=== PATIENT | female | born 1980 | race Caucasian/White ===

== ENCOUNTER 2021-03-21 17:14 | Emergency (ER) | payer BC, SELFPAY ==
[2021-03-21 17:27] VITALS: BP 153/61; PULSE 129; RESP 16; TEMP 37.9; O2SAT 100
--- NOTE | 2021-03-21 17:57 | ED.URI ---
HPI - URI/Sore Throat General Chief Complaint: Upper Respiratory Infection Stated Complaint: sore throat Time Seen by Provider: 03/21/21 17:57 Source: patient, RN notes reviewed and old records reviewed Mode of arrival: ambulatory Limitations: no limitations History of Present Illness HPI Narrative: 41 year old female who presents to [facility] care with complaints of sore throat which started today. Patient states that she has an elevated temperature, white pus pockets noted also on bilateral tonsils. Patient denies any nasal congestion or any ear pain, no cough or any nausea or vomiting. Patient reports that she has been taking Ibuprofen for her symptoms.Patient denies any shortness of breath or any wheezing. denies any muscle aches or headache pain. Patient has had COVID vaccinations. MD elicited complaint: fever and sore throat Related Data Home Medications Medication Instructions Recorded Confirmed phentermine 37.5 mg PO DAILY 03/21/21 03/21/21 Allergies Allergy/AdvReac Type Severity Reaction Status Date / Time [facility] [[facility] Allergy Mild Hives Verified 03/21/21 17:51 Review of Systems Review of Systems: CONSTITUTIONAL: Positive for fever, chills, or sweats. EYES: Denies visual changes, redness, or discharge. ENT: Denies rhinorrhea, congestion, positive for sore throat, no otalgia. CARDIOVASCULAR: Denies chest pain, palpitations, or edema. RESPIRATORY: Denies cough or dyspnea. GASTROINTESTINAL: Denies abdominal pain, nausea, vomiting, or diarrhea. GENITOURINARY: Denies dysuria or hematuria. SKIN: Denies rash or itching. MUSCULOSKELETAL: Denies back pain, joint pain, or myalgia. NEUROLOGIC: Denies headache, numbness, or weakness. PSYCHIATRIC: Denies anxiety or depression. All systems reviewed & are unremarkable except as noted in HPI and below PMFSH Past Medical History Medical History (Updated 03/23/21 @ 21:49 by Marylu Kirk NP) Fibroid, uterine Ovarian cyst Surgical History Surgical History (Updated 03/23/21 @ 21:49 by Marylu Kirk NP) History of dilation and curettage Hx of cholecystectomy Family History Family History (Updated 03/23/21 @ 21:56 by Marylu Kirk NP) Other Family history non-contributory Social History Social History (Updated 03/23/21 @ 21:50 by Marylu Kirk NP) Smoking status: Never smoker Alcohol intake: current Alcohol use details: social Substance use: never Living arrangements: with family Gender identity (if verbalized by the patient): Female Comments At time of signature, agree with nursing past medical, surgical, social and family history. There is no relevant family history pertinent to the presenting complaint Exam Narrative: GENERAL: Well-appearing, well-nourished, and in no acute distress. HEAD: Normocephalic, atraumatic. EYES: PERRLA and EOMI. ENT: Nares clear, no rhinorrhea or epistaxis. Mucous membranes moist.TM's normal with good light reflex, throat red with white pustules noted on bilateral tonsils with tonsils red and swollen, reports painful swallowing, able to control oral secretions, no trismus noted. NECK: Supple.lymphadenopathy noted bilateral neck CHEST: Clear to auscultation. No respiratory distress no cough noted, SAO2 100% on room air.. HEART: Regular rate and rhythm. No murmur heard. Normal peripheral pulses. ABDOMEN: Soft, nontender, nondistended, normal active bowel sounds. EXTREMITIES: Normal range of motion. No edema. SKIN: Warm, dry, no rash. NEURO: No focal deficits. Alert and oriented x3. Course Vital Signs Vital signs: Vital Signs Temperature 37.9 C H 03/21/21 17:27 Pulse Rate 129 H 03/21/21 17:27 Respiratory Rate 16 03/21/21 17:27 Blood Pressure 153/61 H 03/21/21 17:27 Pulse Oximetry 100 03/21/21 17:27 Temperature 37.9 C H 03/21/21 17:27 Pulse Rate 129 H 03/21/21 17:27 Respiratory Rate 16 03/21/21 17:27 Blood Pressure 153/61 H 03/21/21 17:27 Pulse Oximetry
== END 2021-03-21 18:13 | disposition home or self-care (01) ==
PROVIDERS: Emergency Provider Registered Nurse; PCP Family Medicine
DX: J03.90 Acute tonsillitis, unspecified (principal)
CPT/HCPCS: 87081; 87880; 99213; G0463

== ENCOUNTER 2023-01-17 16:36 | Emergency (ER) | payer BC, SELFPAY ==
[2023-01-17 16:43] VITALS: BP 124/79; PULSE 96; RESP 16; TEMP 36.7; O2SAT 100
[2023-01-17 16:44] VITALS: BP 124/79; PULSE 96; RESP 16; TEMP 36.7; O2SAT 100
--- NOTE | 2023-01-17 17:06 | ED.FEMALEGU ---
HPI - Female Genitourinary General Chief complaint: Urogenital-Female Stated complaint: Urinary Problem Time Seen by Provider: 01/17/23 17:06 Source: patient, RN notes reviewed and old records reviewed Mode of arrival: ambulatory Limitations: no limitations History of Present Illness HPI Narrative: 42-year-old female presents to the [facility] with urinary symptoms. Patient reports frequency, urgency and a 9 able to completely empty her bladder feeling. Reports irritation when she urinates however no significant pain. Has been increasing over the last 3 days. Related Data Home Medications Medication Instructions Recorded Confirmed phentermine 37.5 mg tablet 37.5 mg PO DAILY 03/21/21 10/22/22 Allergies Allergy/AdvReac Type Severity Reaction Status Date / Time cefaclor [From [facility]] Allergy Mild Hives Verified 12/17/22 08:45 Review of Systems Review of Systems: All systems reviewed & are unremarkable except as noted in HPI and below Constitutional: Constitutional: Reports no additional constitutional complaints Eyes: Eyes: Reports no additional eye complaints ENT: Reports system reviewed and no additional complaints, except as documented Cardiovascular: Cardiovascular: Reports no additional cardiovascular complaints, Denies chest pain and Denies dyspnea Respiratory: Respiratory: Reports no additional respiratory complaints, Denies chest congestion, Denies cough and Denies dyspnea Gastrointestinal: Gastrointestinal: Reports no additional gastrointestinal complaints, Denies abdominal pain, Denies nausea and Denies vomiting Genitourinary: Genitourinary: Reports as per HPI Musculoskeletal: Musculoskeletal: Reports no additional musculoskeletal complaints Integumentary/Breasts: Skin/Breast: Reports system reviewed and no additional complaints, except as docu Neurologic: Reports system reviewed and no additional complaints, except as documented Psychiatric: Psychiatric: Reports no additional psychiatric complaints Allergic/Immunologic: Allergic/Immunologic: Reports no additional allergic/immunologic complaints [facility] Past Medical History Medical History Endometriosis Fibroid, uterine Ovarian cyst Unspecified lump in the left breast, lower outer quadrant Surgical History Surgical History H/O cervical polypectomy 2011 History of cholecystectomy History of dilation and curettage HSCOPE D&C/POLYP/LSCOPE LT OVARIAN CYST 11/07/2020 hysteroscopy/D&C - endocervical polyp-benign- 2010 laparoscopy/D&C/hysteroscopy - pelvic endometriosis/adhesion descending colon,sigmoid colon,left pelvic sidewall/uterine septum- 2007 Hx of cholecystectomy Family History Family History Mother Hypothyroidism Other Family history non-contributory Social History Social History Smoking status: Never smoker Alcohol intake: current Alcohol use details: social Substance use: never Substance use type: does not use Lack of Transportation: No Lack of Food: Never True Current Housing: I Have Housing Concerned About Future Housing: No Difficulty Paying Gas/Electric Bills: No Difficulty Paying for Meds: No Currently Unemployed: No Education: Bachelor's Degree Difficulty w/ Childcare or Family Care: No Living arrangements: with family Gender identity (if verbalized by the patient): Female Sexual Orientation (if Verbalized by the Patient): Straight or Heterosexual Comments At the time of my signature, I reviewed and agree with the nursing past medical, surgical, social, and family history. There is no relevant family history pertinent to the patient complaint. Exam Const: General: cooperative, healthy appearing, comfortable, no acute distress, well developed, alert and well
== END 2023-01-17 17:16 | disposition home or self-care (01) ==
PROVIDERS: Emergency Provider Nurse Practitioner; PCP Family Medicine
DX: N39.0 Urinary tract infection, site not specified (principal); B96.20 Unspecified Escherichia coli [E. coli] as the cause of diseases classified elsewhere; N80.9 Endometriosis, unspecified
CPT/HCPCS: 81003; 87077; 87086; 87186; 99213; G0463

== ENCOUNTER 2023-10-16 14:57 | Emergency (ER) | payer BC, SELFPAY ==
[2023-10-16 15:01] VITALS: BP 140/71; PULSE 103; RESP 18; TEMP 37.3; O2SAT 100
--- NOTE | 2023-10-16 15:27 | ED.FEMALEGU ---
HPI - Female Genitourinary General Chief complaint: Urogenital-Female Stated complaint: poss UTI Source: patient and RN notes reviewed Mode of arrival: ambulatory Limitations: no limitations History of Present Illness HPI Narrative: 43-year-old female presented for complaint of burning at the end of urination, frequency, urgency. Onset over one week, worsening since yesterday. Reports pressure when sitting. denies hematuria, nausea, vomiting, abdominal pain, flank pain, constipation, diarrhea, fevers or chills. LMP 2 weeks ago, denies concern for std or . Related Data Home Medications Medication Instructions Recorded Confirmed phentermine 37.5 mg tablet 37.5 mg PO DAILY 03/21/21 10/16/23 losartan 25 mg tablet 25 mg PO DAILY 10/16/23 10/16/23 Allergies Allergy/AdvReac Type Severity Reaction Status Date / Time cefaclor [From [facility]] Allergy Mild Hives Verified 10/16/23 15:15 Review of Systems Review of Systems: CONSTITUTIONAL: Denies body aches, fever, chills, or sweats. CARDIOVASCULAR: Denies chest pain, palpitations, or edema. RESPIRATORY: Denies cough or dyspnea. GASTROINTESTINAL: Denies abdominal pain, nausea, vomiting, or diarrhea. GENITOURINARY: Reports dysuria, frequency, urgency, denies hematuria, flank pain SKIN: Denies rash, itching, or wounds. MUSCULOSKELETAL: Denies back pain or myalgia. [facility] Past Medical History Medical History Endometriosis Fibroid, uterine Ovarian cyst Unspecified lump in the left breast, lower outer quadrant Surgical History Surgical History H/O cervical polypectomy 2011 History of cholecystectomy History of dilation and curettage HSCOPE D&C/POLYP/LSCOPE LT OVARIAN CYST 11/07/2020 hysteroscopy/D&C - endocervical polyp-benign- 2009 laparoscopy/D&C/hysteroscopy - pelvic endometriosis/adhesion descending colon,sigmoid colon,left pelvic sidewall/uterine septum- 2007 Hx of cholecystectomy Family History Family History Mother Hypothyroidism Other Family history non-contributory Social History Social History Smoking status: Never smoker Alcohol intake: current Alcohol use details: social Substance use: never Substance use type: does not use Lack of Transportation: No Lack of Food: Never True Current Housing: I Have Housing Concerned About Future Housing: No Difficulty Paying Gas/Electric Bills: No Difficulty Paying for Meds: No Currently Unemployed: No Education: Bachelor's Degree Difficulty w/ Childcare or Family Care: No Living arrangements: with family Gender identity (if verbalized by the patient): Female Sexual Orientation (if Verbalized by the Patient): Straight or Heterosexual Comments At time of signature, I have reviewed and agree with nursing past medical, surgical, social and family history unless otherwise noted. Please see nursing chart for further information. There is no relevant family history pertinent to the presenting complaint Exam Narrative: GENERAL: Well-appearing ENT: Mucous membranes pink and moist. NECK: Normal AROM. Supple. CHEST: No respiratory distress. Clear to auscultation. HEART: Regular rate and rhythm. ABDOMEN: Soft, nontender, nondistended, normal active bowel sounds. No CVA tenderness SKIN: Warm, dry, no rash. NEURO: No focal deficits. Alert and oriented x3. Gait steady. PSYCH: Normal affect. Course Course Emergency Course: Patient is aware of diagnosis, understands and agrees to treatment plan. Anticipatory guidance given. Patient agrees to follow-up as directed and is aware of reasons to seek care at the emergency department. Portions of this record may have been created with voice recognition software Level of Care: [facility]
== END 2023-10-16 15:33 | disposition home or self-care (01) ==
PROVIDERS: Emergency Provider Nurse Practitioner Family; PCP Family Medicine
DX: R30.0 Dysuria (principal); N80.9 Endometriosis, unspecified
CPT/HCPCS: 81003; 87077; 87086; 87088; 87186; 99213; G0463

== ENCOUNTER 2023-12-05 08:13 | Outpatient (CLI) | payer BC, SELFPAY ==
--- NOTE | ~2023-12-05 | MMUS_ITS ---
EXAMINATION: MM diagnostic kelly BI w amy, US breast LT limited HISTORY: Palpable lump 10:00 position left breast TECHNIQUE: 3-D tomosynthesis images of the bilateral breasts were performed and synthetic 2-D images were generated. CAD analysis was submitted and interpreted. High resolution limited left breast ultra sound was performed. COMPARISON: Bilateral mammography and left breast sonography dated 12/11/2022 FINDINGS: MAMMOGRAPHIC FINDINGS: There are scattered fibroglandular densities. Parenchymal pattern of both breasts is unchanged from p rior exam. There are stable bilateral masses, most notably at the upper, outer right breast, and lowe r, outer, posterior left breast. Additional small mass probably present in the upper, inner left pancho st no unchanged. No new mass or suspicious distortion seen. No suspicious microcalcifications seen. ULTRASOUND: At the 10:00 position left breast, 4 cm from the nipple, there is a 1.0 x 0.7 x 0.9 cm ovoid mass whi ch is wider than tall, with macrolobulated borders. There is a somewhat heterogeneous internal echote xture of the lesion, without distinct posterior shadowing. Sonographic appearance is essentially unch anged from prior exam. IMPRESSION: Stable bilateral breast masses seen mammographically. Stable 10:00 position left breast breast also i dentified sonographically, as detailed above. Bilateral masses and stable appearance are compatible w ith benign findings. BI-RADS Category 2: Benign finding(s). Reviewed, dictated and finalized at location M. IMPRESSION: Stable bilateral breast masses seen mammographically. Stable 10:00 position lef t breast breast also identified sonographically, as detailed above. Bilateral m asses and stable appearance are compatible with benign findings. BI-RADS Category 2: Benign finding(s).
== END 2023-12-05 08:14 ==
LOC: MICIMG 08:14
PROVIDERS: PCP Obstetrics & Gynecology; Visit Provider Obstetrics & Gynecology
DX: N63.23 Unspecified lump in the left breast, lower outer quadrant (principal); N63.22 Unspecified lump in the left breast, upper inner quadrant
CPT/HCPCS: 76642; 77062; 77066; G0279

== ENCOUNTER 2024-01-11 08:48 | Emergency (ER) | payer BC, SELFPAY ==
[2024-01-11 08:55] VITALS: BP 157/85; PULSE 108; RESP 16; TEMP 36.9; O2SAT 100
--- NOTE | 2024-01-11 08:56 | ED.URI ---
HPI - URI/Sore Throat General Chief Complaint: Upper Respiratory Infection Stated Complaint: upper respiratory Time Seen by Provider: 01/11/24 08:56 Source: patient, RN notes reviewed and old records reviewed Mode of arrival: ambulatory Limitations: no limitations History of Present Illness HPI Narrative: 43-year-old [facility] to [facility] for complaint congestion, bilateral ear fullness, sore throat, productive cough green sputum, bilateral eye irritation and redness for 9 days. Patient states that her eyes have been watering excessively and have been matted shut with yellow discharge upon awakening for last several days. patient reports left ear feels worse than the right and the left ear has had purulent drainage for last 2 days. patient denies visual changes, fever, headache, shortness of breath, difficulty swallowing. Patient reports history of strep, scarlet fever, allergy to Ceclor and recent diagnosis of hypertension. Patient able to tolerate fluids by mouth. Patient hypertensive and tachycardic in triage. Respirations even and nonlabored. Patient able to speak in complete sentences without difficulty. Patient in no acute distress. Related Data Home Medications Medication Instructions Recorded Confirmed losartan 25 mg tablet 25 mg PO DAILY 10/16/23 10/28/23 liraglutide (weight loss) 3 mg/0.5 mg subcut 01/11/24 mL (18 mg/3 mL) subcut pen injector (Saxenda) Allergies Allergy/AdvReac Type Severity Reaction Status Date / Time cefaclor [From Ceclor] Allergy Mild Hives Verified 10/28/23 13:34 Review of Systems Review of Systems: All systems reviewed & are unremarkable except as noted in HPI and below Constitutional: Constitutional: Reports as per HPI, Reports fatigue and Reports lethargy Eyes: Eyes: Reports as per HPI, Denies blurry vision, Denies change in vision, Reports eye discharge ( bilateral, yellow), Reports irritation ( bilateral) and Reports requires corrective lenses ( patient states she has been unable to wear her contacts. Wearing glasses ) ENT: Reports as per HPI, Reports nasal congestion, Reports nasal discharge, Reports sinus pressure and Reports sore throat Cardiovascular: Cardiovascular: Reports no additional cardiovascular complaints, Denies chest pain and Denies dyspnea Respiratory: Respiratory: Reports no additional respiratory complaints, Reports change in phlegm color ( Green), Reports cough and Denies dyspnea Musculoskeletal: Musculoskeletal: Reports no additional musculoskeletal complaints Neurologic: Reports system reviewed and no additional complaints, except as documented Psychiatric: Psychiatric: Reports no additional psychiatric complaints PMFSH Past Medical History Medical History Endometriosis Fibroid, uterine Ovarian cyst Unspecified lump in the left breast, lower outer quadrant Surgical History Surgical History H/O cervical polypectomy 2011 History of cholecystectomy History of dilation and curettage HSCOPE D&C/POLYP/LSCOPE LT OVARIAN CYST 11/07/2020 hysteroscopy/D&C - endocervical polyp-benign- 2009 laparoscopy/D&C/hysteroscopy - pelvic endometriosis/adhesion descending colon,sigmoid colon,left pelvic sidewall/uterine septum- 2007 Hx of cholecystectomy Family History Family History Mother Hypothyroidism Other Family history non-contributory Social History Social History Smoking status: Never smoker Alcohol intake: current Alcohol use details: social Substance use: never Substance use type: does not use Do You Feel Safe in your Home?: Yes Lack of Transportation: No Lack of Food: Never True Current Housing: I Have Housing Concerned About Future Housing: No Difficulty Paying Gas/[employer]
== END 2024-01-11 09:35 | disposition home or self-care (01) ==
PROVIDERS: Emergency Provider Nurse Practitioner Family
DX: H66.93 Otitis media, unspecified, bilateral (principal); H10.9 Unspecified conjunctivitis; N80.9 Endometriosis, unspecified; I10 Essential (primary) hypertension
CPT/HCPCS: 99213; G0463

== ENCOUNTER 2025-04-02 10:16 | Outpatient (CLI) | payer BC, SELFPAY ==
--- NOTE | ~2025-04-02 | MM_ITS ---
EXAMINATION: MM screening kelly BI w amy HISTORY: Screening TECHNIQUE: Craniocaudal and mediolateral oblique 3-D tomosynthesis images were obtained and synthetic 2-D images were generated. CAD analysis was submitted and interpreted. COMPARISON: 12/05/2023 BREAST PARENCHYMAL COMPOSITION: The breasts are heterogeneously dense, which may obscure small masses. FINDINGS: There is no evidence of suspicious mass, calcification, or architectural distortion to suggest malignancy. There has been no suspicious interval change. IMPRESSION: 1. No mammographic evidence of malignancy. Recommend routine screening mammography in one year. BI-RADS Category 2: Benign finding(s) Reviewed, dictated and finalized at location Q. IMPRESSION: 1. No mammographic evidence of malignancy. Recommend routine screening mammogra phy in one year. BI-RADS Category 2: Benign finding(s)
== END 2025-04-02 10:17 | disposition home or self-care (01) ==
PROVIDERS: PCP Nurse Practitioner Adult Health; Visit Provider Obstetrics & Gynecology
DX: Z12.31 Encounter for screening mammogram for malignant neoplasm of breast (principal)
CPT/HCPCS: 77063; 77067